=== PATIENT | female | born 1970 | race Caucasian/White ===

== ENCOUNTER 2023-12-03 14:58 | Emergency (ER) | payer SELFPAY ==
[~2023-12-03] VITALS: Ht 162.6 cm; Wt 56.2 kg
[2023-12-03 15:01] VITALS: BP 115/73; PULSE 66; RESP 17; TEMP 97.1; O2SAT 98
[2023-12-03] MEDS ORDERED: TETRACAINE HCL/PF 0.5% OPTH 4 ML BTL OP ONE (16:05)
[2023-12-03] MEDS ORDERED: FLUORESCEIN OPTH STRIP 1 MG OP ONE (16:05)
[2023-12-03] MEDS ORDERED: IBUP-2213 PO (16:28)
[2023-12-03] MEDS ORDERED: POLY30DR2 OP (16:28)
[2023-12-03 16:55] VITALS: BP 125/74; PULSE 62; RESP 17; TEMP 36.16956; O2SAT 100
== END 2023-12-03 16:55 | disposition home or self-care (01) ==
LOC: MED 14:58
DX: H11.30 Conjunctival hemorrhage, unspecified eye (principal); H40.059 Ocular hypertension, unspecified eye; Z79.899 Other long term (current) drug therapy
CPT/HCPCS: 99283